=== PATIENT | male | born 1960 | race Caucasian/White ===

== ENCOUNTER 2024-05-18 11:43 | Emergency (ER) | payer OTHER ==
[~2024-05-18] VITALS: Ht 182.9 cm; Wt 86.2 kg
[2024-05-18] MEDS ORDERED: PRED20 PO (13:14)
== END 2024-05-18 13:19 | disposition home or self-care (01) ==
LOC: ER 11:43
DX: M54.12 Radiculopathy, cervical region (principal); Z79.52 Long term (current) use of systemic steroids
CPT/HCPCS: 99283

== ENCOUNTER → 2024-09-30 | Outpatient (CLI) | payer OTHER ==
[~2024-09-30] MED LIST: PRED20 PO
[2024-09-30 12:14] LABS: BASOPHILS ABSOLUTE AUTO 0.01 K/mm3 (0.00-0.23); BASOPHILS PERCENT AUTO 0 % (0-2); EOSINOPHILS ABSOLUTE AUTO 0.09 K/mm3 (0.00-0.68); EOSINOPHILS PERCENT AUTO 3 % (0-6); IMMATURE GRAN PERCENT AUTO 0 % (0-1); LYMPHOCYTES ABSOLUTE AUTO 1.03 K/mm3 (0.84-5.20); LYMPHOCYTES PERCENT AUTO 29 % (21-46); MONOCYTES ABSOLUTE AUTO 0.37 K/mm3 (0.16-1.47); MONOCYTES PERCENT AUTO 11 % (4-13); Mean Corpuscular HGB 29.2 pg (26.0-34.0); Mean Corpuscular Volume 86 fL (80-100); Mean Platelet Volume 9.6 fL (9.1-12.4); NEUTROPHILS ABSOLUTE AUTO 2.01 K/mm3 (1.96-9.15); NEUTROPHILS PERCENT AUTO 57 % (41-73); Platelet Count 247 K/mm3 (150-400); RDW Coefficient Variation 13.2 % (11.7-14.2); RDW Standard Deviation 40.5 fL (35.1-46.3); Red Blood Cell Count 5.48 M/mm3 (4.30-5.90); White Blood Cell Count 3.51 K/mm3 (4.00-11.30)
[2024-09-30 12:34] LABS: Albumin/Globulin Ratio 1.1 (0.8-1.8); Bilirubin, Total 0.4 mg/dL (0.1-1.0); Bun/Creatinine Ratio 9.6 (12.0-20.0); Calcium, Blood 9.2 mg/dL (8.5-10.1); Creatinine, Blood 1.25 mg/dL (0.60-1.20); Free Thyroxine 0.93 ng/dL (0.70-1.60); Globulin, Blood 3.5 g/dL (2.2-4.0); Potassium, Blood 4.4 mmol/L (3.5-5.5); Thyroid Stimulating Hormone 3.113 uIU/mL (0.360-4.800); Total Protein, Blood 7.5 g/dL (6.4-8.2)
== END ==
LOC: LAB SHORT 12:09 → LAB 12:09
PROVIDERS: Chiropractor
DX: R59.0 Localized enlarged lymph nodes (principal)
CPT/HCPCS: 80053; 84439; 84443; 85025